=== PATIENT | female | born 1940 | race Caucasian/White ===

== ENCOUNTER 2018-11-27 09:37 | Day surgery (SDC) | payer MEDICARE, OTHER ==
[~2018-11-27] VITALS: Ht 149.9 cm; Wt 59.4 kg
[~2018-11-27 09:37] MED LIST: ASPIRIN E.C. 8181 MG PO; BETIMOL 5 ML5 ML OU; CLEOCIN HCL300 MG PO; D3-5050000 IU PO; ELIQUIS 5MG PO; MULTI VITAMINS1 TAB PO; NATURE'S BLE1000 MCG PO; NEURONTIN300 MG/CAP PO; OMEGA-3 FISH1000 MG PO; ULTRAM 50MG TAB50 MG PO; VITAMIN B12 681 TAB PO; VITAMIN C500 MG PO; ZESTRIL40 MG PO; ZOHYDRO ER10 MG PO
[2018-11-27] MEDS ORDERED: LYRICA 75MG CAP75 MG PO (10:24)
[2018-11-27] MEDS ORDERED: FLONASE SENSIM9.9 ML NS (10:25)
[2018-11-27] MEDS ORDERED: ROXICODONE 55 MG/TAB PO (10:26)
[2018-11-27] MEDS ORDERED: PROAIR HFA0.09 MG/AC IH (10:27)
[2018-11-27] MEDS ORDERED: ALBUTEROL0.83 MG/ML IH (10:27)
[2018-11-27] MEDS ORDERED: CALCIUM CARBON650 M2 PO (10:28)
[2018-11-27 10:35] VITALS: BP 123/69; PULSE 67; TEMP 98.2
[2018-11-27 10:57] VITALS: BP 182/66; PULSE 100
--- NOTE | 2018-11-27 10:59 | NUR ---
SEE MERGE DOCUMENTATION FOR MEDICATION ADMINISTRATION TIMES AND INTRA/POST PROCEDURE SEDATION ASSESSMENT.
[2018-11-27] MEDS ORDERED: CLEOCIN HCL300 MG PO (11:43)
[2018-11-27 11:45] VITALS: BP 177/67; PULSE 66
[2018-11-27 12:15] VITALS: BP 142/61; PULSE 70
[2018-11-27 12:45] VITALS: BP 129/62; PULSE 70
--- NOTE | 2018-11-27 12:47 | NUR ---
Discharge instructions given to pt.pt verbalizes understanding.INT removed,catheter tip intact.Pt escorted out via ambulatory by this nurse.Pt refused wheelchair.
== END 2018-11-27 13:04 | disposition home or self-care (01) ==
LOC: COL.CAR 09:37
DX: I48.0 Paroxysmal atrial fibrillation (principal); R55 Syncope and collapse; I73.9 Peripheral vascular disease, unspecified; I10 Essential (primary) hypertension; F17.210 Nicotine dependence, cigarettes, uncomplicated; I70.0 Atherosclerosis of aorta; Z88.5 Allergy status to narcotic agent; Z88.3 Allergy status to other anti-infective agents; Z88.8 Allergy status to other drugs, medicaments and biological substances; Z79.82 Long term (current) use of aspirin; Z79.01 Long term (current) use of anticoagulants; Z82.3 Family history of stroke; I65.23 Occlusion and stenosis of bilateral carotid arteries; Z88.0 Allergy status to penicillin; Z88.6 Allergy status to analgesic agent
CPT/HCPCS: J2250; J3010; J3370; J7040; J7050

== ENCOUNTER → 2021-07-08 | Outpatient (CLI) | payer MEDICARE, OTHER ==
[~2021-07-08] MED LIST changes: +ALBUTEROL0.83 MG/ML IH; +CALCIUM CARBON650 M2 PO; +FLONASE SENSIM9.9 ML NS; +LYRICA 75MG CAP75 MG PO; +PROAIR HFA0.09 MG/AC IH; +ROXICODONE 55 MG/TAB PO
== END ==
LOC: COL.RAD 12:16
DX: I65.23 Occlusion and stenosis of bilateral carotid arteries (principal)
CPT/HCPCS: Q9967

== ENCOUNTER 2021-09-23 08:50 | Day surgery (SDC) | payer MEDICARE, OTHER ==
[~2021-09-23] VITALS: Ht 149.9 cm; Wt 56.9 kg
[2021-09-23 09:17] VITALS: BP 199/93; PULSE 76; TEMP 98.5
[2021-09-23] MEDS ORDERED: ULTRAM 50MG TAB50 MG PO (09:44)
[2021-09-23] MEDS ORDERED: CLARITIN 1010 MG/TAB PO (09:45)
[2021-09-23] MEDS ORDERED: AIRBORNE ELDER PO (09:46)
[2021-09-23] MEDS ORDERED: AIRBORNE CHEWA1 EAC1 PO (09:47)
[2021-09-23 10:40] VITALS: BP 164/78; PULSE 84; TEMP 97.5
--- NOTE | 2021-09-23 10:40 | NUR ---
PT arrived from procedure, drowsy but oriented. SBA to chair from bed. Monitors applied and vitals obtained; blood pressure is elevated, however it is within range of pre-op level. Verbal report obtained from Nic ORTEGA. Pt denies nausea. Visitor is present. PT served hot coffee, applesauce and buttered toast per request. PT oriented to room and call galindo, within reach. is in to speak with the PT.
[2021-09-23 10:55] VITALS: BP 168/82; PULSE 86
[2021-09-23 11:10] VITALS: BP 172/92; PULSE 79
--- NOTE | 2021-09-23 11:10 | NUR ---
Vitals obtained; BP remains high but is within the 20 point range. PT expressed desire to be discharged. IV discontinued. Catheter tip intact. Pressure bandage applied. NO redness or swelling noted. DC instructions and educational material reviewed with the pt and visitor, who verbalized understanding and signed the related paperwork. Questions answered. PT denied needing assistance changing into personal belongings, visitor stepped out. Call galindo remains within reach on side table.
--- NOTE | 2021-09-23 11:25 | NUR ---
PT dismissed from endo via wheelchair to the PT entrence by Chrissy ORTEGA. PT has DC packet in hand and personal belongings, and was transferred into the care of her visitor who is driving personal car.
== END 2021-09-23 11:25 | disposition home or self-care (01) ==
LOC: SDCO 08:50
DX: Z12.11 Encounter for screening for malignant neoplasm of colon (principal); D12.4 Benign neoplasm of descending colon; D12.5 Benign neoplasm of sigmoid colon; K56.609 Unspecified intestinal obstruction, unspecified as to partial versus complete obstruction; K57.30 Diverticulosis of large intestine without perforation or abscess without bleeding; K64.1 Second degree hemorrhoids; I48.91 Unspecified atrial fibrillation; F17.210 Nicotine dependence, cigarettes, uncomplicated; Z86.010 Personal history of colon polyps; Z85.038 Personal history of other malignant neoplasm of large intestine; Z98.0 Intestinal bypass and anastomosis status; Z79.01 Long term (current) use of anticoagulants; Z95.818 Presence of other cardiac implants and grafts
CPT/HCPCS: J2704; J7120